=== PATIENT | female | born 1995 | race Hispanic/Latino ===

== ENCOUNTER 2019-08-28 01:05 | Emergency (ER) | payer SELFPAY ==
[2019-08-28] MEDS ORDERED: ONDANSETRON 4 MG/2 ML VIAL ONE (01:47)
[2019-08-28] MEDS ORDERED: NA CHLORIDE 0.9% 1,000 ML ONE (01:47)
[2019-08-28] MEDS ORDERED: MORPHINE 4 MG/ML SYR ONE (01:47)
[2019-08-28 02:21] LABS: Absolute Lymphocytes (CBC) 1.8 K/uL (0.7-4.9); Basophils % 0.9 % (0-1.3); Lymphocytes % 32.7 % (15.3-44.8); MPV 9.5 fL (7.6-11.3); RBC Red Blood Cell Count 4.42 M/uL (3.86-4.86)
[2019-08-28] MEDS ORDERED: FAMOTIDINE 20 MG/2 ML VIAL IV ONE (02:23)
[2019-08-28 02:31] LABS: ALT/SGPT 34 U/L (12-78); AST/SGOT 22 U/L (15-37); Alkaline Phosphatase 69 U/L (45-117); BUN Blood Urea Nitrogen 9 mg/dL (7-18); Bicarbonate 24 mmol/L (21-32); Bilirubin Direct < 0.1 mg/dL (0-0.2); Bilirubin Total 0.3 mg/dL (0.2-1.0); Glucose Level 95 mg/dL (74-106); Lipase 121 U/L (73-393); Potassium 3.6 mmol/L (3.5-5.1); Protein, Total 7.6 g/dL (6.4-8.2); Sodium Level 143 mmol/L (136-145)
[2019-08-28 03:12] LABS: Barbiturates NEGATIVE (NEGATIVE); Benzodiazepines NEGATIVE (NEGATIVE); Cocaine NEGATIVE (NEGATIVE); METHAMPHETAM NEGATIVE (NEGATIVE); Methadone NEGATIVE (NEGATIVE); Opiates NEGATIVE (NEGATIVE); Phencyclidine NEGATIVE (NEGATIVE); THC Cannibis NEGATIVE (NEGATIVE)
--- NOTE | 2019-08-28 03:38 | ER ---
Nurse's Notes [facility] Name: Belinda Pratt Age: 24 yrs Sex: Female : 1995 Arrival Date: 08/28/2019 Time: 01:06 Bed 18 Private MD: Diagnosis: Gastritis, unspecified;Alcohol abuse with intoxication;Abdominal tenderness Presentation: 08/28 01:25 Presenting complaint: Significant other states: she complaints of abdominal pain and rr5 started vomiting started 1 hour ago. she drank tequila around 4 PM. Transition of care: patient was not received from another setting of care. Onset of symptoms was August 27, 2019. Risk Assessment: Do you want to hurt yourself or someone else? Patient reports no desire to harm self or others. Initial Sepsis Screen: Does the patient meet any 2 criteria? No. Patient's initial sepsis screen is negative. Does the patient have a suspected source of infection? No. Patient's initial sepsis screen is negative. Care prior to arrival: None. 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 - Social history:: Smoking status: Patient/guardian denies using tobacco, Patient uses alcohol, occasionally. Patient/guardian denies using street drugs. - Ebola Screening: : Patient negative for fever greater than or equal to 101.5 degrees Fahrenheit, and additional compatible Ebola Virus Disease symptoms Patient denies exposure to infectious person Patient denies travel to an Ebola-affected area in the 21 days before illness onset. - Family history:: not pertinent. Screenin:00 Abuse screen: Denies threats or abuse. Denies injuries from another. Nutritional rr5 screening: No deficits noted. Tuberculosis screening: No symptoms or risk factors identified. Fall Risk IV access (20 points). Gait- Weak (10 pts.). Mental Status- Total Mcgill Fall Scale indicates Low Risk Score (25-44 pts). Fall prevention measures have been instituted. Side Rails Up X 2 Placed close to Nursing Station Frequent Obs/Assesments occuring Family Present and informed to notify staff if they need to leave bedside As available Patient and Family Educated on Fall Prevention Program and strategies. Assessment: 01:25 General: Appears in no apparent distress. uncomfortable, slender, Behavior is drowsy, rr5 Smells of alcohol. 01:25 Pain: Complains of pain in right upper quadrant and right lower quadrant Pain does not rr5 radiate. Pain currently is 10 out of 10 on a pain scale. Quality of pain is described as aching, Pain began gradually, Is intermittent. Neuro: Level of Consciousness is awake, alert, obeys commands, Oriented to person, place, time, situation. Cardiovascular: Capillary refill < 3 seconds Patient's skin is warm and dry. Respiratory: Airway is patent Respiratory effort is even, unlabored, Respiratory pattern is regular, symmetrical. GI: Abdomen is flat, non-distended, Abd is soft and non tender Reports lower abdominal pain, upper abdominal pain, nausea, Parent/caregiver reports the patient having nausea, vomiting, pain. : No signs and/or symptoms were reported regarding the genitourinary system. EENT: No signs and/or symptoms were reported regarding the EENT system. Derm: Skin is intact, is healthy with good turgor, Skin temperature is warm. Musculoskeletal: Circulation, motion, and sensation intact. Capillary refill < 3 seconds. 02:10 Reassessment: Patient appears in no apparent distress at this time. No changes from rr5 previously documented assessment. awaiting for results. 03:34 Reassessment: Patient appears in no apparent distress at this time. Patient is alert, rr5 oriented x 3, equal unlabored respirations, skin warm/dry/pink. refused to do CT scan ED provider informed Patient states feeling better. Patient states symptoms have improved. 03:45 Reassessment: Patient appears in no apparent distress at this time. Patient is alert, rr5 oriented x 3, equal unlabored respirations, skin warm/dry/pink. fully awake oriented x 4 patient verbalized I feel fine now no pain, I don't want to do CT scan. i will just follow up to my doctor. ED provider informed. 04:05 Reassessment: Patient appears in no apparent distress at this time. Patient is alert, rr5 oriented x 3, equal unlabored respirations, skin warm/dry/pink. discharge instruction given and explained without complaints made. Vital Signs: 01:29 BP 98 / 75; Pulse 96; Resp 19; Temp 98.5; Pulse Ox 100% ; Weight 63.5 kg; Height 5 ft. rr5 1 in. (154.94 cm); 02:00 BP 116 / 70; Pulse 89; Resp 19; Pulse Ox 98% ; Pain 10/10; rr5 03:00 BP 105 / 69; Pulse 78; Resp 15; Pulse Ox 98% ; Pain 0/10; rr5 03:34 BP 99 / 62; Pulse 75; Resp 15; Temp 97.8; Pulse Ox 99% ; rr5 04:00 BP 101 / 70; Pulse 65; Resp 16; Temp 97.8; Pulse Ox 99% ; Pain 0/10; rr5 01:29 Body Mass Index 26.45 (63.50 kg, 154.94 cm) rr5 [place] Coma Score: 03:45 Eye Response: spontaneous(4). Verbal Response: oriented(5). Motor Response: obeys rr5 commands(6). Total: 15. 04:00 Eye Response: spontaneous(4). Verbal Response: oriented(5). Motor Response: obeys rr5 commands(6). Total: 15. ED Course: 01:06 Patient arrived in ED. ds1 01:16 Scar Reina MD is Attending Physician. pat 01:25 Ochoa Evans RN is Primary Nurse. rr5 01:25 Arm band placed on. rr5 01:29 Triage completed. rr5 01:30 Patient has correct armband on for positive identification. Placed in gown. Bed in low rr5 position. Call light in reach. Side rails up X2. cafeteria monitor on. Pulse ox on. NIBP on. 01:50 Inserted saline lock: 20 gauge in right antecubital area, using aseptic technique. rr5 Blood collected. 03:46 No provider procedures requiring assistance completed. IV discontinued, intact, rr5 bleeding controlled, No redness/swelling at site. Pressure dressing applied. Administered Medications: 02:00 Drug: Zofran 4 mg Route: IVP; Site: right antecubital; rr5 03:00 Follow up: Response: No adverse reaction; Marked relief of symptoms rr5 02:00 Drug: NS 0.9% 1000 ml Route: IV; Rate: 1 bolus; Site: right antecubital; rr5 03:10 Follow up: Response: No adverse reaction; IV Status: Completed infusion; IV Intake: rr5 1000ml 02:02 Drug: morphine 4 mg {Note: rass 0.} Route: IVP; Site: right antecubital; rr5 03:00 Follow up: Response: No adverse reaction; RASS: Alert and Calm (0) rr5 02:15 Drug: Pepcid 20 mg Route: IVP; Site: right antecubital; rr5 03:15 Follow up: Response: No adverse reaction rr5 Intake: 03:10 IV: 1000ml; Total: 1000ml. rr5 Outcome: 03:37 Discharge ordered by MD. stewart 04:09 Discharged to home ambulatory, with family. rr5 04:09 Condition: stable 04:09 Discharge instructions given to patient, Instructed on discharge instructions, follow up and referral plans. medication usage, Demonstrated understanding of instructions, follow-up care, medications, Prescriptions given X 3. 04:16 Patient left the ED. rr5 Signatures: Scar Reina MD MD cha Sanford, Demi ds1 Ochoa Evans, RN RN rr5
--- NOTE | 2019-08-28 03:38 | EDPHYS ---
Physician Documentation [facility] Name: Belinda Pratt Age: 24 yrs Sex: Female : 1995 Arrival Date: 08/28/2019 Time: 01:06 Bed 18 Private MD: ED Physician Scar Reina HPI: 08/28 02:00 This 24 yrs old Female presents to ER via Wheelchair with complaints of Side pat Pain. 02:00 The patient presents with abdominal pain in the lower abdomen. Onset: The pat symptoms/episode began/occurred just prior to arrival. The patient presents with confusion, trouble concentrating. Onset: The symptoms/episode began/occurred just prior to arrival. Possible causes: unknown. The symptoms do not radiate. Associated signs and symptoms: Pertinent positives: confusion, nausea. Modifying factors: The symptoms are alleviated by nothing, the symptoms are aggravated by nothing. 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 - Social history:: Smoking status: Patient/guardian denies using tobacco, Patient uses alcohol, occasionally. Patient/guardian denies using street drugs. - Ebola Screening: : Patient negative for fever greater than or equal to 101.5 degrees Fahrenheit, and additional compatible Ebola Virus Disease symptoms Patient denies exposure to infectious person Patient denies travel to an Ebola-affected area in the 21 days before illness onset. - Family history:: not pertinent. ROS: 02:00 Constitutional: Negative for fever, chills, and weight loss, Eyes: Negative for injury, pat pain, redness, and discharge, ENT: Negative for injury, pain, and discharge, Neck: Negative for injury, pain, and swelling, Cardiovascular: Negative for chest pain, palpitations, and edema, Respiratory: Negative for shortness of breath, cough, wheezing, and pleuritic chest pain, Back: Negative for injury and pain, : Negative for injury, bleeding, discharge, and swelling, MS/Extremity: Negative for injury and deformity, Skin: Negative for injury, rash, and discoloration, Neuro: Negative for headache, weakness, numbness, tingling, and seizure, Psych: Negative for depression, anxiety, suicide ideation, homicidal ideation, and hallucinations, Allergy/Immunology: Negative for hives, rash, and allergies, Endocrine: Negative for neck swelling, polydipsia, polyuria, polyphagia, and marked weight changes, Hematologic/Lymphatic: Negative for swollen nodes, abnormal bleeding, and unusual bruising. Exam: 02:00 Constitutional: This is a well developed, well nourished patient who is awake, alert, pat and in no acute distress. Head/Face: Normocephalic, atraumatic. Eyes: Pupils equal round and reactive to light, extra-ocular motions intact. Lids and lashes normal. Conjunctiva and sclera are non-icteric and not injected. Cornea within normal limits. Periorbital areas with no swelling, redness, or edema. ENT: Nares patent. No nasal discharge, no septal abnormalities noted. Tympanic membranes are normal and external auditory canals are clear. Oropharynx with no redness, swelling, or masses, exudates, or evidence of obstruction, uvula midline. Mucous membranes moist. Neck: Trachea midline, no thyromegaly or masses palpated, and no cervical lymphadenopathy. Supple, full range of motion without nuchal rigidity, or vertebral point tenderness. No Meningismus. Chest/axilla: Normal chest wall appearance and motion. Nontender with no deformity. No lesions are appreciated. Cardiovascular: Regular rate and rhythm with a normal S1 and S2. No gallops, murmurs, or rubs. Normal PMI, no JVD. No pulse deficits. Respiratory: Lungs have equal breath sounds bilaterally, clear to auscultation and percussion. No rales, rhonchi or wheezes noted. No increased work of breathing, no retractions or nasal flaring. Back: No spinal tenderness. No costovertebral tenderness. Full range of motion. Skin: Warm, dry with normal turgor. Normal color with no rashes, no lesions, and no evidence of cellulitis. MS/ Extremity: Pulses equal, no cyanosis. Neurovascular intact. Full, normal range of motion. Neuro: Awake and alert, GCS 15, oriented to person, place, time, and situation. Cranial nerves II-XII grossly intact. Motor strength 5/5 in all extremities. Sensory grossly intact. Cerebellar exam normal. Normal gait. Psych: Awake, alert, with orientation to person, place and time. Behavior, mood, and affect are within normal limits. 02:00 Abdomen/GI: Inspection: abdomen appears normal, Bowel sounds: active, Palpation: mild abdominal tenderness, in the epigastric area and right upper quadrant, Liver: no appreciated palpable abnormalities, Hernia: not appreciated. Vital Signs: 01:29 BP 98 / 75; Pulse 96; Resp 19; Temp 98.5; Pulse Ox 100% ; Weight 63.5 kg; Height 5 ft. rr5 1 in. (154.94 cm); 02:00 BP 116 / 70; Pulse 89; Resp 19; Pulse Ox 98% ; Pain 10/10; rr5 03:00 BP 105 / 69; Pulse 78; Resp 15; Pulse Ox 98% ; Pain 0/10; rr5 03:34 BP 99 / 62; Pulse 75; Resp 15; Temp 97.8; Pulse Ox 99% ; rr5 04:00 BP 101 / 70; Pulse 65; Resp 16; Temp 97.8; Pulse Ox 99% ; Pain 0/10; rr5 01:29 Body Mass Index 26.45 (63.50 kg, 154.94 cm) rr5 [place] Coma Score: 03:45 Eye Response: spontaneous(4). Verbal Response: oriented(5). Motor Response: obeys rr5 commands(6). Total: 15. 04:00 Eye Response: spontaneous(4). Verbal Response: oriented(5). Motor Response: obeys rr5 commands(6). Total: 15. MDM: 01:16 Patient medically screened. [facility] 02:02 Data reviewed: vital signs, nurses notes, lab test result(s), EKG, radiologic studies, [facility] CT scan, plain films. 08/28 01:51 Order name: Basic Metabolic Panel [facility] 08/28 01:51 Order name: CBC with Diff [facility] 08/28 01:51 Order name: Creatinine for Radiology [facility] 08/28 01:51 Order name: Hepatic Function [facility] 08/28 01:51 Order name: Lipase [facility] 08/28 01:51 Order name: ETOH Level [facility] 08/28 01:59 Order name: UDS [facility] 08/28 02:28 Order name: Creatinine (Radiology Only); Complete Time: 02:51 [facility] 08/28 02:31 Order name: Basic Metabolic Panel; Complete Time: 02:51 [facility] 08/28 02:31 Order name: Liver (Hepatic) Function; Complete Time: 02:51 [facility] 08/28 02:31 Order name: Lipase; Complete Time: 02:51 [facility] 08/28 02:36 Order name: CBC with Automated Diff; Complete Time: 02:51 [facility] 08/28 02:37 Order name: Alcohol Serum/Plasma; Complete Time: 02:51 [facility] 08/28 03:12 Order name: Urine Drug Screen; Complete Time: 03:33 [facility] 08/28 01:51 Order name: IV Saline Lock; Complete Time: 02:47 [facility] 08/28 01:51 Order name: Labs collected and sent; Complete Time: 02:47 [facility] 08/28 01:59 Order name: Urine Dipstick-Ancillary (obtain specimen); Complete Time: 02:59 [facility] 08/28 01:59 Order name: Urine Test (obtain specimen); Complete Time: 02:59 [facility] 08/28 01:59 Order name: CT Abd/Pelvis - IV Contrast Only pat Administered Medications: 02:00 Drug: Zofran 4 mg Route: IVP; Site: right antecubital; rr5 03:00 Follow up: Response: No adverse reaction; Marked relief of symptoms rr5 02:00 Drug: NS 0.9% 1000 ml Route: IV; Rate: 1 bolus; Site: right antecubital; rr5 03:10 Follow up: Response: No adverse reaction; IV Status: Completed infusion; IV Intake: rr5 1000ml 02:02 Drug: morphine 4 mg {Note: rass 0.} Route: IVP; Site: right antecubital; rr5 03:00 Follow up: Response: No adverse reaction; RASS: Alert and Calm (0) rr5 02:15 Drug: Pepcid 20 mg Route: IVP; Site: right antecubital; rr5 03:15 Follow up: Response: No adverse reaction rr5 Disposition: 08/28/19 03:37 Discharged to Home. Impression: Gastritis, unspecified, Alcohol abuse with intoxication, Abdominal tenderness. - Condition is Stable. - Discharge Instructions: Alcohol Intoxication, Gastritis, Adult, Gastritis, Adult, [id number], Alcohol Intoxication, [id number]. - Prescriptions for Pepcid 20 mg Oral Tablet - take 1 tablet by ORAL route every 12 hours for 10 days; 20 tablet. Bentyl 20 mg Oral Tablet - take 1 tablet by ORAL route every 6 hours As needed; 20 tablet. Zofran 4 mg Oral Tablet - take 1 tablet by ORAL route every 12 hours As needed; 20 tablet. - Medication Reconciliation Form, Thank You Letter, Antibiotic Education, Prescription Opioid Use form. - Follow up: Private Physician; When: 2 - 3 days; Reason: Recheck today's complaints, Continuance of care, Re-evaluation by your physician. - Problem is new. - Symptoms have improved. Signatures: Dispatcher [employer] EDTX Scar Reina MD MD cha Roque, Raymond RN RN rr5 Corrections: (The following items were deleted from the chart) 04:16 03:37 08/28/2019 03:37 Discharged to Home. Impression: Gastritis, unspecified; Alcohol rr5 abuse with intoxication; Abdominal tenderness. Condition is Stable. Discharge Instructions: Alcohol Intoxication, Gastritis, Adult, Gastritis, Adult, [id number], Alcohol Intoxication, [id number]. Prescriptions for Pepcid 20 mg Oral Tablet - take 1 tablet by ORAL route every 12 hours for 10 days; 20 tablet, Bentyl 20 mg Oral Tablet - take 1 tablet by ORAL route every 6 hours As needed; 20 tablet, Zofran 4 mg Oral Tablet - take 1 tablet by ORAL route every 12 hours As needed; 20 tablet. and Forms are Medication Reconciliation Form, Thank You Letter, Antibiotic Education, Prescription Opioid Use. Follow up: Private Physician; When: 2 - 3 days; Reason: Recheck today's complaints, Continuance of care, Re-evaluation by your physician. Problem is new. Symptoms have improved. pat
[2019-08-28 09:29] VITALS: TEMP 97.8; O2SAT 99
[2019-08-28 09:30] VITALS: BP 101/70
== END 2019-08-28 04:16 | disposition home or self-care (01) ==
LOC: ER 01:05
DX: K29.70 Gastritis, unspecified, without bleeding (principal); F10.129 Alcohol abuse with intoxication, unspecified
CPT/HCPCS: 36415; 80048; 80076; 80307; 80320; 83690; 85025; 96361; 96374; 96375; 99284; J2405; J7030